=== PATIENT | male | born 1940 | race Caucasian/White ===

== ENCOUNTER → 2017-08-25 | Outpatient (CLI) | payer MEDICARE ==
[~2017-08-25] MED LIST: ASPI81CH PO; CHOL10002; Hytrin1 MG PO; Saw Palmetto80 MG
[2017-08-25 18:19] LABS: BASOPHILS ABSOLUTE AUTO 0.02 K/mm3 (0.00-0.23); BASOPHILS PERCENT AUTO 1 % (0-2); EOSINOPHILS ABSOLUTE AUTO 0.11 K/mm3 (0.00-0.68); EOSINOPHILS PERCENT AUTO 3 % (0-6); Hematocrit 36.9 % (37.0-53.0); Hemoglobin 12.5 g/dL (13.5-17.5); IMMATURE GRAN ABSOLUTE AUTO 0.01 K/mm3 (0.00-0.10); IMMATURE GRAN PERCENT AUTO 0 % (0-1); LYMPHOCYTES ABSOLUTE AUTO 0.98 K/mm3 (0.84-5.20); LYMPHOCYTES PERCENT AUTO 29 % (21-46); MONOCYTES ABSOLUTE AUTO 0.48 K/mm3 (0.16-1.47); MONOCYTES PERCENT AUTO 14 % (4-13); Mean Corpuscular HGB 36.1 pg (26.0-34.0); Mean Corpuscular HGB Conc 33.9 g/dL (31.5-36.5); Mean Corpuscular Volume 107 fL (80-100); NEUTROPHILS ABSOLUTE AUTO 1.79 K/mm3 (1.96-9.15); NEUTROPHILS PERCENT AUTO 53 % (41-73); RDW Standard Deviation 54.8 fL (35.1-46.3); Red Blood Cell Count 3.46 M/mm3 (4.30-5.90); White Blood Cell Count 3.39 K/mm3 (4.00-11.30)
[2017-08-25 18:22] LABS: Mean Platelet Volume 10.8 fL (9.1-12.4); Platelet Count 60 K/mm3 (150-400)
[2017-08-25 18:43] LABS: Alanine Aminotransfer (ALT/SGP 106 U/L (12-78); Albumin, Blood 3.4 g/dL (3.4-5.0); Albumin/Globulin Ratio 0.6 (0.8-1.8); Alk Phos 102 U/L (50-136); Anion Gap 8 mmol/L (6-16); Aspartate Aminotrans (AST/SGOT 100 U/L (12-37); Bilirubin, Direct 0.3 mg/dL (0.0-0.3); Bilirubin, Indirect 0.5 mg/dL (0.1-0.7); Bilirubin, Total 0.8 mg/dL (0.1-1.0); Blood Urea Nitrogen 23 mg/dL (8-24); Bun/Creatinine Ratio 26.1 (12.0-20.0); CO2, Blood 25 mmol/L (21-32); Calcium, Blood 9.1 mg/dL (8.5-10.1); Chloride, Blood 110 mmol/L (98-108); Creatinine, Blood 0.88 mg/dL (0.60-1.20); Globulin, Blood 5.3 g/dL (2.2-4.0); Glomerular Filtration Rate >60 (60-); Glucose, Blood 107 mg/dL (70-99); Potassium, Blood 4.3 mmol/L (3.5-5.5); Sodium, Blood 143 mmol/L (136-145); Total Protein, Blood 8.7 g/dL (6.4-8.2)
[2017-08-26 15:35] LABS: International Normalized Ratio 1.25; Prothrombin Time Results 12.7 Sec (9.7-11.5)
== END ==
LOC: LAB SHORT 15:35
PROVIDERS: Nurse Practitioner Family
DX: B19.20 Unspecified viral hepatitis C without hepatic coma (principal); K74.60 Unspecified cirrhosis of liver; K76.89 Other specified diseases of liver
CPT/HCPCS: 80053; 82105; 82247; 82248; 85025; 85610

== ENCOUNTER 2018-04-28 16:03 | Day surgery (SDC) | payer MEDICARE ==
[2018-04-28] MEDS ORDERED: TERA5 PO (18:20)
[2018-04-28] MEDS ORDERED: FURO20 PO (18:20)
[2018-04-28] MEDS ORDERED: Aldactone100 MG PO (18:20)
[2018-04-28] MEDS ORDERED: POTCHL10ER (18:21)
== END 2018-04-28 17:28 | disposition home or self-care (01) ==
LOC: ATC 16:03
DX: K74.60 Unspecified cirrhosis of liver (principal); R18.8 Other ascites
CPT/HCPCS: 49083; 96365; P9041; P9046

== ENCOUNTER 2018-05-24 13:15 | Emergency (ER) | payer MEDICARE ==
[~2018-05-24] VITALS: Ht 182.9 cm; Wt 78.0 kg
[~2018-05-24 13:15] MED LIST changes: +Aldactone100 MG PO; +FURO20 PO; +POTCHL10ER; +TERA5 PO
[2018-05-24 14:13] LABS: BASOPHILS ABSOLUTE AUTO 0.03 K/mm3 (0.00-0.23); BASOPHILS PERCENT AUTO 1 % (0-2); EOSINOPHILS ABSOLUTE AUTO 0.05 K/mm3 (0.00-0.68); EOSINOPHILS PERCENT AUTO 1 % (0-6); Hematocrit 43.7 % (37.0-53.0); IMMATURE GRAN ABSOLUTE AUTO 0.02 K/mm3 (0.00-0.10); IMMATURE GRAN PERCENT AUTO 0 % (0-1); LYMPHOCYTES ABSOLUTE AUTO 0.73 K/mm3 (0.84-5.20); LYMPHOCYTES PERCENT AUTO 13 % (21-46); MONOCYTES ABSOLUTE AUTO 0.78 K/mm3 (0.16-1.47); MONOCYTES PERCENT AUTO 14 % (4-13); Mean Corpuscular HGB 38.6 pg (26.0-34.0); Mean Corpuscular HGB Conc 34.3 g/dL (31.5-36.5); Mean Corpuscular Volume 112 fL (80-100); Mean Platelet Volume 9.1 fL (9.1-12.4); NEUTROPHILS ABSOLUTE AUTO 4.11 K/mm3 (1.96-9.15); NEUTROPHILS PERCENT AUTO 72 % (41-73); Platelet Count 89 K/mm3 (150-400); RDW Coefficient Variation 13.5 % (11.7-14.2); RDW Standard Deviation 57.6 fL (35.1-46.3); Red Blood Cell Count 3.89 M/mm3 (4.30-5.90); White Blood Cell Count 5.72 K/mm3 (4.00-11.30)
[2018-05-24 14:32] LABS: International Normalized Ratio 1.22; Prothrombin Time Results 12.7 Sec (9.7-11.5)
[2018-05-24 14:33] LABS: Alanine Aminotransfer (ALT/SGP 24 U/L (12-78); Albumin, Blood 2.9 g/dL (3.4-5.0); Albumin/Globulin Ratio 0.6 (0.8-1.8); Alk Phos 88 U/L (50-136); Anion Gap 8 mmol/L (6-16); Aspartate Aminotrans (AST/SGOT 39 U/L (12-37); Bilirubin, Total 1.3 mg/dL (0.1-1.0); Blood Urea Nitrogen 37 mg/dL (8-24); Bun/Creatinine Ratio 31.4 (12.0-20.0); CO2, Blood 25 mmol/L (21-32); Calcium, Blood 8.9 mg/dL (8.5-10.1); Chloride, Blood 102 mmol/L (98-108); Creatinine, Blood 1.18 mg/dL (0.60-1.20); Globulin, Blood 4.8 g/dL (2.2-4.0); Glomerular Filtration Rate >60 (60-); Glucose, Blood 139 mg/dL (70-99); Sodium, Blood 135 mmol/L (136-145); Total Protein, Blood 7.7 g/dL (6.4-8.2)
== END 2018-05-24 18:53 | disposition home or self-care (01) ==
LOC: ER 13:15
PROVIDERS: Emergency Medicine; Physician Assistant
DX: K72.90 Hepatic failure, unspecified without coma (principal); I10 Essential (primary) hypertension; R18.8 Other ascites; D69.6 Thrombocytopenia, unspecified; Z87.891 Personal history of nicotine dependence; Z79.899 Other long term (current) drug therapy
CPT/HCPCS: 36415; 49083; 71046; 80053; 83690; 85025; 85610; 85730; 96365; 99284-25; P9046

== ENCOUNTER 2018-06-22 13:54 | Day surgery (SDC) | payer MEDICARE | END 2018-06-22 16:55 | disposition home or self-care (01) | LOC: US 13:54 → ATC 13:54 → US 14:00 → ATC 16:55 | DX: K74.60 Unspecified cirrhosis of liver (principal); R18.8 Other ascites | CPT/HCPCS: 49083; 96365; P9041 ==

== ENCOUNTER 2018-07-07 14:17 | Day surgery (SDC) | payer MEDICARE | END 2018-07-07 17:30 | disposition home or self-care (01) | LOC: US 14:17 → ATC 14:17 | DX: K74.60 Unspecified cirrhosis of liver (principal); R18.8 Other ascites; C22.9 Malignant neoplasm of liver, not specified as primary or secondary; D69.6 Thrombocytopenia, unspecified; B19.20 Unspecified viral hepatitis C without hepatic coma; Z87.891 Personal history of nicotine dependence; Z79.899 Other long term (current) drug therapy | CPT/HCPCS: 49083; 96365; P9041; P9046 ==

== ENCOUNTER 2018-07-21 13:50 | Day surgery (SDC) | payer MEDICARE | END 2018-07-21 17:32 | disposition home or self-care (01) | LOC: US 13:50 → ATC 13:50 → US 14:00 → ATC 17:32 | DX: K74.60 Unspecified cirrhosis of liver (principal); R18.8 Other ascites; B19.20 Unspecified viral hepatitis C without hepatic coma; C22.9 Malignant neoplasm of liver, not specified as primary or secondary; Z79.899 Other long term (current) drug therapy; Z87.891 Personal history of nicotine dependence | CPT/HCPCS: 49083; 96365; P9041; P9046 ==

== ENCOUNTER → 2018-08-03 | Outpatient (CLI) | payer MEDICARE ==
[2018-08-04 15:14] LABS: International Normalized Ratio 1.14; Prothrombin Time Results 11.9 Sec (9.7-11.5)
== END | disposition home or self-care (01) ==
LOC: LAB SHORT 18:19 → LAB 18:19
PROVIDERS: Nurse Practitioner Primary Care
DX: Z01.812 Encounter for preprocedural laboratory examination (principal)
CPT/HCPCS: 85610; 85730

== ENCOUNTER 2018-08-04 13:58 | Day surgery (SDC) | payer MEDICARE | END 2018-08-04 18:01 | disposition home or self-care (01) | LOC: ATC 13:58 → US 13:58 → ATC 18:01 | DX: K74.60 Unspecified cirrhosis of liver (principal); R18.8 Other ascites; B19.20 Unspecified viral hepatitis C without hepatic coma; D69.6 Thrombocytopenia, unspecified; Z79.899 Other long term (current) drug therapy; Z87.891 Personal history of nicotine dependence | CPT/HCPCS: 49083; 96365; P9041; P9046 ==

== ENCOUNTER 2018-08-18 14:08 | Day surgery (SDC) | payer MEDICARE | END 2018-08-18 17:30 | disposition home or self-care (01) | LOC: US 14:08 | DX: K74.60 Unspecified cirrhosis of liver (principal); R18.8 Other ascites; C22.9 Malignant neoplasm of liver, not specified as primary or secondary | CPT/HCPCS: 49083; 96365; P9046 ==

== ENCOUNTER 2018-09-01 14:09 | Day surgery (SDC) | payer MEDICARE | END 2018-09-01 17:10 | disposition home or self-care (01) | LOC: US 14:09 | DX: K74.60 Unspecified cirrhosis of liver (principal); R18.8 Other ascites; C22.9 Malignant neoplasm of liver, not specified as primary or secondary | CPT/HCPCS: 49083; 96365; P9041 ==

== ENCOUNTER 2018-09-14 14:17 | Day surgery (SDC) | payer MEDICARE | END 2018-09-14 17:22 | disposition home or self-care (01) | LOC: US 14:17 | PROC: 0W9G3ZZ Drainage of Peritoneal Cavity, Percutaneous Approach (ICD-10-PCS; principal; 2018-09-14) | DX: R18.8 Other ascites (principal); K74.60 Unspecified cirrhosis of liver; C22.9 Malignant neoplasm of liver, not specified as primary or secondary | CPT/HCPCS: 49083; 96365; P9041 ==

== ENCOUNTER → 2018-09-28 | Outpatient (CLI) | payer MEDICARE ==
[~2018-09-28] MED LIST changes: +Aldactone50 MG PO; +ONDA4 PO; +OXYC5 PO; +Roxicodone15 MG PO
[2018-09-28 18:06] LABS: BASOPHILS ABSOLUTE AUTO 0.02 K/mm3 (0.00-0.23); BASOPHILS PERCENT AUTO 0 % (0-2); EOSINOPHILS ABSOLUTE AUTO 0.03 K/mm3 (0.00-0.68); EOSINOPHILS PERCENT AUTO 0 % (0-6); Hematocrit 45.2 % (37.0-53.0); Hemoglobin 15.7 g/dL (13.5-17.5); IMMATURE GRAN ABSOLUTE AUTO 0.07 K/mm3 (0.00-0.10); IMMATURE GRAN PERCENT AUTO 1 % (0-1); LYMPHOCYTES PERCENT AUTO 9 % (21-46); MONOCYTES ABSOLUTE AUTO 0.95 K/mm3 (0.16-1.47); MONOCYTES PERCENT AUTO 14 % (4-13); Mean Corpuscular HGB 37.7 pg (26.0-34.0); Mean Corpuscular HGB Conc 34.7 g/dL (31.5-36.5); Mean Corpuscular Volume 109 fL (80-100); Mean Platelet Volume 9.9 fL (9.1-12.4); NEUTROPHILS ABSOLUTE AUTO 5.05 K/mm3 (1.96-9.15); NEUTROPHILS PERCENT AUTO 75 % (41-73); Platelet Count 106 K/mm3 (150-400); RDW Coefficient Variation 13.3 % (11.7-14.2); RDW Standard Deviation 54.4 fL (35.1-46.3); Red Blood Cell Count 4.16 M/mm3 (4.30-5.90); White Blood Cell Count 6.72 K/mm3 (4.00-11.30)
[2018-09-28 19:02] LABS: Alanine Aminotransfer (ALT/SGP 33 U/L (12-78); Albumin, Blood 2.6 g/dL (3.4-5.0); Albumin/Globulin Ratio 0.6 (0.8-1.8); Alk Phos 133 U/L (50-136); Anion Gap 10 mmol/L (6-16); Aspartate Aminotrans (AST/SGOT 45 U/L (12-37); Bilirubin, Total 1.6 mg/dL (0.1-1.0); Blood Urea Nitrogen 40 mg/dL (8-24); Bun/Creatinine Ratio 37.4 (12.0-20.0); CO2, Blood 22 mmol/L (21-32); Calcium, Blood 8.9 mg/dL (8.5-10.1); Chloride, Blood 99 mmol/L (98-108); Creatinine, Blood 1.07 mg/dL (0.60-1.20); Globulin, Blood 4.5 g/dL (2.2-4.0); Glomerular Filtration Rate >60 (60-); Glucose, Blood 101 mg/dL (70-99); Potassium, Blood 4.4 mmol/L (3.5-5.5); Sodium, Blood 131 mmol/L (136-145); Total Protein, Blood 7.1 g/dL (6.4-8.2)
== END | disposition home or self-care (01) ==
LOC: LAB 14:10 → LAB SHORT 14:10
PROVIDERS: Nurse Practitioner Primary Care
DX: R16.0 Hepatomegaly, not elsewhere classified (principal)
CPT/HCPCS: 80053; 85025

== ENCOUNTER 2018-09-29 16:05 | Day surgery (SDC) | payer MEDICARE ==
[~2018-09-29 16:05] MED LIST changes: -Aldactone50 MG PO; -ONDA4 PO; -OXYC5 PO; -Roxicodone15 MG PO
== END 2018-09-29 17:57 | disposition home or self-care (01) ==
LOC: ATC 16:05
DX: K74.60 Unspecified cirrhosis of liver (principal); R18.8 Other ascites; K72.90 Hepatic failure, unspecified without coma; B19.20 Unspecified viral hepatitis C without hepatic coma; D69.6 Thrombocytopenia, unspecified; C22.9 Malignant neoplasm of liver, not specified as primary or secondary; Z79.899 Other long term (current) drug therapy; Z87.891 Personal history of nicotine dependence
CPT/HCPCS: 49083; 96365; P9041

== ENCOUNTER 2018-10-13 13:59 | Day surgery (SDC) | payer MEDICARE | END 2018-10-13 22:44 | disposition home or self-care (01) | LOC: US 13:59 → ATC 13:59 → US 14:00 → ATC 22:44 | DX: K74.60 Unspecified cirrhosis of liver (principal); R18.8 Other ascites; B19.20 Unspecified viral hepatitis C without hepatic coma; K72.90 Hepatic failure, unspecified without coma; D69.6 Thrombocytopenia, unspecified; Z85.05 Personal history of malignant neoplasm of liver; Z79.899 Other long term (current) drug therapy; Z87.891 Personal history of nicotine dependence | CPT/HCPCS: 49083; 96365; P9046 ==

== ENCOUNTER 2018-10-17 10:43 | Emergency (ER) | payer MEDICARE ==
[~2018-10-17] VITALS: Ht 182.9 cm; Wt 78.9 kg
[2018-10-17 11:37] LABS: BASOPHILS ABSOLUTE AUTO 0.02 K/mm3 (0.00-0.23); BASOPHILS PERCENT AUTO 0 % (0-2); EOSINOPHILS ABSOLUTE AUTO 0.01 K/mm3 (0.00-0.68); EOSINOPHILS PERCENT AUTO 0 % (0-6); Hematocrit 45.3 % (37.0-53.0); Hemoglobin 15.8 g/dL (13.5-17.5); IMMATURE GRAN ABSOLUTE AUTO 0.04 K/mm3 (0.00-0.10); IMMATURE GRAN PERCENT AUTO 1 % (0-1); LYMPHOCYTES ABSOLUTE AUTO 0.31 K/mm3 (0.84-5.20); LYMPHOCYTES PERCENT AUTO 4 % (21-46); MONOCYTES ABSOLUTE AUTO 0.97 K/mm3 (0.16-1.47); MONOCYTES PERCENT AUTO 12 % (4-13); Mean Corpuscular HGB 38.3 pg (26.0-34.0); Mean Corpuscular HGB Conc 34.9 g/dL (31.5-36.5); Mean Corpuscular Volume 110 fL (80-100); Mean Platelet Volume 9.1 fL (9.1-12.4); NEUTROPHILS PERCENT AUTO 84 % (41-73); Platelet Count 109 K/mm3 (150-400); RDW Coefficient Variation 13.8 % (11.7-14.2); RDW Standard Deviation 56.9 fL (35.1-46.3); Red Blood Cell Count 4.13 M/mm3 (4.30-5.90); White Blood Cell Count 8.35 K/mm3 (4.00-11.30)
[2018-10-17 12:49] LABS: Albumin, Blood 3.1 g/dL (3.4-5.0); Albumin/Globulin Ratio 0.7 (0.8-1.8); Bilirubin, Total 2.3 mg/dL (0.1-1.0); Calcium, Blood 9.1 mg/dL (8.5-10.1); Creatinine, Blood 1.5 mg/dL (0.60-1.20); Globulin, Blood 4.4 g/dL (2.2-4.0); Potassium, Blood 5.6 mmol/L (3.5-5.5); Total Protein, Blood 7.5 g/dL (6.4-8.2)
[2018-10-17 13:57] LABS: International Normalized Ratio 1.17; Prothrombin Time Results 12.2 Sec (9.7-11.5)
== END 2018-10-17 16:13 | disposition home or self-care (01) ==
LOC: ER 10:43
PROVIDERS: Emergency Medicine; Internal Medicine
DX: C22.8 Malignant neoplasm of liver, primary, unspecified as to type (principal); R18.8 Other ascites; Z79.899 Other long term (current) drug therapy; Z87.891 Personal history of nicotine dependence
CPT/HCPCS: 36415; 49083; 80053; 83690; 85025; 85610; 85730; 99284-25

== ENCOUNTER 2018-10-27 16:02 | Day surgery (SDC) | payer MEDICARE ==
[2018-10-27] MEDS ORDERED: ONDA4 PO (16:33)
[2018-10-27] MEDS ORDERED: OXYC5 PO (16:33)
== END 2018-10-27 17:02 | disposition home or self-care (01) ==
LOC: ATC 16:02
DX: K74.60 Unspecified cirrhosis of liver (principal); R18.8 Other ascites; B19.20 Unspecified viral hepatitis C without hepatic coma; C22.9 Malignant neoplasm of liver, not specified as primary or secondary; Z79.899 Other long term (current) drug therapy; Z87.891 Personal history of nicotine dependence
CPT/HCPCS: 49083; 96365; P9046

== ENCOUNTER → 2018-11-02 | Outpatient (CLI) | payer MEDICARE ==
[~2018-11-02] MED LIST changes: +Aldactone50 MG PO; +ONDA4 PO; +OXYC5 PO; +Roxicodone15 MG PO
[2018-11-02 19:27] LABS: Alanine Aminotransfer (ALT/SGP 28 U/L (12-78); Albumin, Blood 2.8 g/dL (3.4-5.0); Albumin/Globulin Ratio 0.7 (0.8-1.8); Alk Phos 149 U/L (50-136); Anion Gap 8 mmol/L (6-16); Aspartate Aminotrans (AST/SGOT 42 U/L (12-37); Bilirubin, Total 3.5 mg/dL (0.1-1.0); Blood Urea Nitrogen 36 mg/dL (8-24); Bun/Creatinine Ratio 30.8 (12.0-20.0); CO2, Blood 25 mmol/L (21-32); Calcium, Blood 8.8 mg/dL (8.5-10.1); Chloride, Blood 94 mmol/L (98-108); Creatinine, Blood 1.17 mg/dL (0.60-1.20); Globulin, Blood 4.1 g/dL (2.2-4.0); Glomerular Filtration Rate >60 (60-); Glucose, Blood 131 mg/dL (70-99); Potassium, Blood 4.8 mmol/L (3.5-5.5); Sodium, Blood 127 mmol/L (136-145); Total Protein, Blood 6.9 g/dL (6.4-8.2)
== END | disposition home or self-care (01) ==
LOC: LAB 18:40 → LAB SHORT 18:40
PROVIDERS: Nurse Practitioner Primary Care
DX: K74.60 Unspecified cirrhosis of liver (principal)
CPT/HCPCS: 80053

== ENCOUNTER 2018-11-03 13:58 | Day surgery (SDC) | payer MEDICARE ==
[~2018-11-03 13:58] MED LIST changes: -Aldactone50 MG PO; -Roxicodone15 MG PO
== END 2018-11-03 23:31 | disposition home or self-care (01) ==
LOC: US 13:58
DX: K74.60 Unspecified cirrhosis of liver (principal); R18.8 Other ascites; C22.9 Malignant neoplasm of liver, not specified as primary or secondary
CPT/HCPCS: 49083

== ENCOUNTER → 2018-11-04 | Outpatient (CLI) | payer MEDICARE ==
[~2018-11-04] MED LIST changes: +Aldactone50 MG PO; +Roxicodone15 MG PO
== END | disposition home or self-care (01) ==
LOC: LAB 13:06 → LAB SHORT 13:06
DX: K74.60 Unspecified cirrhosis of liver (principal)
CPT/HCPCS: 82140

== ENCOUNTER 2018-11-08 09:18 | Observation (INO) | payer MEDICARE ==
[~2018-11-08] VITALS: Ht 172.7 cm; Wt 59.4 kg
[~2018-11-08 09:18] MED LIST changes: -Aldactone50 MG PO; -Roxicodone15 MG PO
[2018-11-08 09:50] LABS: BASOPHILS ABSOLUTE AUTO 0.02 K/mm3 (0.00-0.23); BASOPHILS PERCENT AUTO 0 % (0-2); EOSINOPHILS PERCENT AUTO 0 % (0-6); Hematocrit 39.8 % (37.0-53.0); Hemoglobin 14.7 g/dL (13.5-17.5); IMMATURE GRAN ABSOLUTE AUTO 0.03 K/mm3 (0.00-0.10); IMMATURE GRAN PERCENT AUTO 1 % (0-1); LYMPHOCYTES PERCENT AUTO 8 % (21-46); MONOCYTES ABSOLUTE AUTO 0.72 K/mm3 (0.16-1.47); MONOCYTES PERCENT AUTO 11 % (4-13); Mean Corpuscular HGB Conc 36.9 g/dL (31.5-36.5); Mean Corpuscular Volume 103 fL (80-100); Mean Platelet Volume 9.7 fL (9.1-12.4); NEUTROPHILS ABSOLUTE AUTO 5.07 K/mm3 (1.96-9.15); NEUTROPHILS PERCENT AUTO 80 % (41-73); Platelet Count 74 K/mm3 (150-400); RDW Coefficient Variation 13.8 % (11.7-14.2); RDW Standard Deviation 52.5 fL (35.1-46.3); Red Blood Cell Count 3.87 M/mm3 (4.30-5.90); White Blood Cell Count 6.34 K/mm3 (4.00-11.30)
[2018-11-08 10:02] LABS: Alanine Aminotransfer (ALT/SGP 81 U/L (12-78); Albumin, Blood 2.7 g/dL (3.4-5.0); Albumin/Globulin Ratio 0.7 (0.8-1.8); Alk Phos 160 U/L (50-136); Anion Gap 12 mmol/L (6-16); Aspartate Aminotrans (AST/SGOT 255 U/L (12-37); Bilirubin, Total 6.8 mg/dL (0.1-1.0); Blood Urea Nitrogen 92 mg/dL (8-24); Bun/Creatinine Ratio 30.6 (12.0-20.0); CO2, Blood 22 mmol/L (21-32); Calcium, Blood 8.9 mg/dL (8.5-10.1); Chloride, Blood 89 mmol/L (98-108); Creatinine, Blood 3.01 mg/dL (0.60-1.20); Globulin, Blood 3.9 g/dL (2.2-4.0); Glomerular Filtration Rate 21 (60-); Glucose, Blood 108 mg/dL (70-99); Potassium, Blood 5.9 mmol/L (3.5-5.5); Sodium, Blood 123 mmol/L (136-145); Total Protein, Blood 6.6 g/dL (6.4-8.2)
--- NOTE | 2018-11-08 11:48 | NUR ---
Initial Visit: ED Palliative Care Consult for Goals of Care. Spoke with ED MARY ANNE Madrid and Dr Cabrera. Case Discussed including goals of care. Pt's POLST reads DNR, Comfort Measures Only, and No Artificial Nutrition by Tube. Pt's signature present and still needs MD signature. Pt is resting in bed and is unresponsive. He appears comfortable with no S/S of distress at this time. Pt's significant other Kapil in to visit with Pt. Engaged in therapeutic conversation regarding goals of care. Kapil reports she and Pt never but has been in a relationship with Pt for decades. Kapil reports Pt does not have family locally. All family lives in [place]. Kapil confirms Pt's wishes that are completed on POLST. Kapil reports having medical disabilities and can not care for Pt. She reports a significant decline with Pt over the last several weeks and had [facility] staff come and evaluate. No decisions have been made as of yet and Kapil reports the soonest she will hear back from [facility] is next Wednesday or Wednesday. Kapil reports her goal is to have Pt admitted to hospital with Pt's wishes for comfort measures only. She also reports a assistant coach visit would be appreciated. Spoke with ED Driver Merchandiser Zuleyma and discussed case including a safe discharge plan with possibility to [facility] if Pt is accepted next week. Spoke with Dr Cabrera and plan is to admit Pt on comfort care. Dr Cabrera signs POLST. Placed comfort care order set per V/O from Dr Cabrera. Faxed copy of POLST to Medical Records. Palliative Care will remain available.
[2018-11-08 12:00] LABS: Creatine Kinase MB 28.2 ng/mL (0.0-3.6); Creatine Kinase MB Index 0.9 (0.0-4.0)
[2018-11-08] MEDS ORDERED: Roxicodone15 MG PO (12:05)
[2018-11-08] MEDS ORDERED: Aldactone50 MG PO (12:06)
--- NOTE | 2018-11-08 17:47 | NUR ---
[facility] Spiritual Care inital note: Met with SO, Kapil, at bedside in ED. She was tring to remain stoic. She shared with me pieces of she and Oz's life together. She has a good relationship with his adult children. She also feels well-supported by her own kids. However, none of them live locally. Oz appeared comfortable and non-responsive throughout visit. Kapil is non-presybeterian, but appeared to appreciaite emotional validation, theraputic listening, and gentle high school guidance counselor. Followed Oz to Med floor room. Kapil went home to rest for awhile. I will remain available.
--- NOTE | 2018-11-08 17:48 | NUR ---
SUMMARY PT ADMITTED FROM THE ER, IS ON COMFORT CARE, PT ONLY MOANS WHEN TURNED AND CARES GIVEN, DOES NOT FOLLOW ANY COMMANDS, PT MED PER EMAR FOR S/S PAIN AND INCREASED WORK OF BREATHING, SIGNIFICANT OTHER HAS CALLED TO CHECK ON THE PT, NO ACUTE CHANGES, WILL CONT TO MONITOR
--- NOTE | 2018-11-08 23:46 | NUR ---
family called reported pt was resting quietly. continued with q2 turns and frequent checks, during one ck, noted brown foam on mouth, coughed and sprayed on bedding, changed bedding and suctioned mouth, no s/sx of discomfort will continue to monitor and treat as appropriate for comfort care
--- NOTE | 2018-11-09 01:18 | NUR ---
entered room to assess pt, no breathing noted, checked for heart beat, called CN who confirmed lack of heart beat or pulse, called SO listed on chart as next of kin, rubén, declined to come in and requested that the body be sent to [facility] in , passed info on to CN who agreed to contact home, , and nursing supervisory lifeguard, placed face sheet on bed, will await further developments, leaf emblem on door, no h/a or dentures no jewlery noted, IV removed, gown on ready for departure
--- NOTE | 2018-11-09 03:35 | NUR ---
[facility] Сергей Shamplin took the body, no personel belongings to send, face sheet provided
== END 2018-11-09 00:50 ==
LOC: ER 09:18 → MEDS 09:19 → ER 11:27 → MEDS 11:27
PROVIDERS: Physician Assistant; ADMIT Internal Medicine
DX: K72.91 Hepatic failure, unspecified with coma (principal); N17.9 Acute kidney failure, unspecified; E87.5 Hyperkalemia; K74.60 Unspecified cirrhosis of liver; D69.59 Other secondary thrombocytopenia; Z87.891 Personal history of nicotine dependence; Z79.899 Other long term (current) drug therapy
CPT/HCPCS: 36415; 70450; 71045; 80053; 82550; 82553; 85025; 96374; 99285-25; G0378; J3360